=== PATIENT | female | born 1940 | race Caucasian/White ===

== ENCOUNTER 2016-11-25 20:18 | Emergency (ER) | payer OTHER ==
[~2016-11-25] VITALS: Ht 165.1 cm; Wt 79.9 kg
[2016-11-25] MEDS ORDERED: PERCOCET 5/31 TABLET PO (23:06)
[2016-11-25 23:14] VITALS: BP 168/65
== END 2016-11-25 23:19 | disposition home or self-care (01) ==
LOC: EME 20:18 → EXP 20:18
DX: M17.12 Unilateral primary osteoarthritis, left knee (principal); M25.462 Effusion, left knee; I10 Essential (primary) hypertension; R73.03 Prediabetes; E78.00 Pure hypercholesterolemia, unspecified
CPT/HCPCS: 73564; 99281; 99284